=== PATIENT | male | born 1990 | race Two or more races ===

== ENCOUNTER 2025-02-12 03:50 | Emergency (ER) | payer MEDICAID ==
[~2025-02-12] VITALS: Ht 180.3 cm; Wt 106.0 kg
[2025-02-12 03:58] VITALS: O2SAT 97
[2025-02-12 03:59] VITALS: BP 159/90; PULSE 94; RESP 18; TEMP 36.7; O2SAT 100
[2025-02-12 05:37] LABS: HIV 1/2 AB P24AG Negative (Negative)
[2025-02-12 09:25] LABS: HEPATITIS C VIR.AB 0.05 INDEXVAL (0.00-0.80)
== END 2025-02-12 06:30 | disposition home or self-care (01) ==
LOC: ER 05:46
DX: S61.031A Puncture wound without foreign body of right thumb without damage to nail, initial encounter (principal); W46.0XXA Contact with hypodermic needle, initial encounter; Y93.89 Activity, other specified; Y92.89 Other specified places as the place of occurrence of the external cause; Y99.8 Other external cause status
CPT/HCPCS: 36415; 99283; Z7610